=== PATIENT | male | born 1965 | race Caucasian/White ===

== ENCOUNTER 2017-08-25 17:58 | Inpatient (IN) | payer BC ==
[~2017-08-25] VITALS: Ht 177.8 cm; Wt 89.8 kg
[2017-08-25 19:30] LABS: BILIRUBIN,URINE NEGATIVE (NEGATIVE); CLARITY,URINE CLEAR (CLEAR); COLOR,URINE YELLOW (YELLOW); KETONES,URINE 1+ (NEGATIVE); LEUKOCYTE ESTERASE ,URINE NEGATIVE (NEGATIVE); NITRITE,URINE NEGATIVE (NEGATIVE); PROTEIN,URINE DIPSTICK NEGATIVE (NEGATIVE); URINE UROBILINOGEN 0.2 mg/dL (0.2 - 1)
[2017-08-25 19:33] LABS: WBC,URINE (MAN) 0-5 /HPF (0-5)
[2017-08-25 19:34] LABS: BACTERIA,URINE RARE /HPF; MUCUS,URINE MODERATE (RARE)
[2017-08-26] VITALS (8 sets, daily range): BP systolic 127–165; BP diastolic 73–89
[2017-08-26] MEDS ORDERED: KETOROLAC TROMETHAMINE 30 MG/ML VIAL IV STA (00:54)
[2017-08-26] MEDS ORDERED: ONDANSETRON HCL INJ 2 MG/ML VIAL IV STA (00:54)
[2017-08-26] MEDS ORDERED: KETOROLAC TROMETHAMINE 30 MG/ML VIAL ONE (01:02)
[2017-08-26] MEDS ORDERED: ONDANSETRON HCL INJ 2 MG/ML VIAL ONE (01:02)
[2017-08-26 01:35] LABS: BASOPHILS # (AUTO) 0.1 (0.0-0.1); BASOPHILS % 0.6 % (0.0-1.0); EOSINOPHILS % 0.1 % (0.0-6.0); HEMATOCRIT 44.4 % (38.2-49.6); HEMOGLOBIN 15.4 g/dL (14.0-18.0); LYMPHOCYTES # (AUTO) 0.8 (1.0-3.2); LYMPHOCYTES % 9.2 % (18.0-39.1); MEAN CORPUSCULAR HGB CONC 34.7 g/dL (31-35); MEAN CORPUSCULAR VOLUME 92.3 fL (81-99); MONOCYTES # (AUTO) 0.9 (0.2-0.8); MONOCYTES % 10.6 % (4.4-11.3); PLATELET COUNT 193 x10e3/uL (140-360); RED BLOOD COUNT 4.81 x10e6/uL (4.3-5.7); RED CELL DISTRIBUTION WIDTH 11.7 % (11.7-14.4)
[2017-08-26 01:37] LABS: ALBUMIN 4.3 g/dL (3.5-5.0); ALBUMIN/GLOBULIN RATIO 1.3 (0.8-2.0); ANION GAP 16.1 mmol/L (8-16); CALCIUM 9.5 mg/dL (8.4-10.2); CREATININE, SERUM 1.31 mg/dL (0.72-1.25); POTASSIUM 4.1 mmol/L (3.5-5.1)
--- NOTE | 2017-08-26 02:07 | Diagnostic Imaging Report ---
EXAM: CT Abdomen and Pelvis WITHOUT contrast INDICATION: Right flank pain COMPARISON: None. TECHNIQUE: Abdomen and pelvis were scanned utilizing a multidetector helical scanner from the lung base to the pubic symphysis without administration of IV contrast. Absence of intravenous contrast decreases sensitivity for detection of focal lesions and vascular pathology. Coronal and sagittal reformations were obtained. Stone protocol is performed. IV CONTRAST: None. ORAL CONTRAST: None RADIATION DOSE: Total DLP: 583.83 mGy*cm Estimated effective dose: (DLP x 0.015 x size factor) mSv COMPLICATIONS: None FINDINGS: LINES and TUBES: None. LOWER THORAX: Unremarkable HEPATOBILIARY: No focal hepatic lesions. No biliary ductal dilation. GALLBLADDER: There is layering sludge in the gallbladder No wall thickening. SPLEEN: No splenomegaly. PANCREAS: No focal masses or ductal dilatation. ADRENALS: No adrenal nodules KIDNEYS/URETERS: Right-sided mild hydroureteronephrosis secondary to a 6 mm stone in the distal right ureter. No cystic or solid mass lesions. GI TRACT: No abnormal distention, wall thickening, or evidence of bowel obstruction. There are diverticula within the colon without evidence of diverticulitis. Appendix is normal. PELVIC ORGANS/BLADDER: Unremarkable. LYMPH NODES: No lymphadenopathy. VESSELS: Unremarkable. PERITONEUM / RETROPERITONEUM: No free air or fluid. BONES: Unremarkable. SOFT TISSUES: Unremarkable. IMPRESSION: 1. Obstructive 6 mm stone in the distal right ureter resulting in mild hydroureteronephrosis. Signed by: Dr. Lex Hodges M.D. on 08/26/2017 2:03 AM
[2017-08-26] MEDS: SODIUM CHLORIDE 0.9% 1000ML 1,000 ML IV SCH ×3 (03:00→12:52)
[2017-08-26] MEDS ORDERED: CEFTRIAXONE SOD 1 GM VIAL IV SCH (04:15)
[2017-08-26] MEDS ORDERED: HYDROMORPHONE 1MG/1ML INJ IV PRN (04:15)
[2017-08-26] MEDS ORDERED: CEFTRIAXONE SOD 1 GM/NS 50 ML 50 ML IV SCH (04:30)
[2017-08-26] MEDS ORDERED: CEFTRIAXONE SOD 1 GM VIAL IV ONE (05:15)
[2017-08-26] MEDS ORDERED: TESSALON PERLE100 MG PO (05:32)
[2017-08-26] MEDS ORDERED: BENAZEPRIL HCL10 MG PO (05:32)
[2017-08-26] MEDS ORDERED: HYDROMORPHONE 2MG/ML INJ IV PRN ×2 (05:45)
[2017-08-26] MEDS: ONDANSETRON HCL INJ 2 MG/ML VIAL IV PRN ×4 (05:47→17:42)
[2017-08-26] MEDS ORDERED: WATER STERILE 10 ML VIAL INJ PRN (08:45)
[2017-08-26] MEDS: HYDROMORPHONE 2MG/ML INJ IV PRN ×4 (09:30→22:02)
[2017-08-26] MEDS: ACETAMINOPHEN 325 MG TAB PO PRN ×2 (12:36→17:42)
[2017-08-26] MEDS: METOPROLOL TARTRATE 25 MG TAB PO SCH ×2 (13:15→17:36)
[2017-08-26 13:50] LABS: CHOL/HDL RATIO 3.6 (3.9-4.7)
[2017-08-26] MEDS: FAMOTIDINE 20 MG TAB PO SCH (17:36)
[2017-08-26 19:18] LABS: BASOPHILS % 0.3 % (0.0-1.0); EOSINOPHILS % 0.6 % (0.0-6.0); HEMOGLOBIN 13.3 g/dL (14.0-18.0); LYMPHOCYTES # (AUTO) 0.4 (1.0-3.2); LYMPHOCYTES % 6.3 % (18.0-39.1); MEAN CORPUSCULAR HEMOGLOBIN 32.6 pg (28-32); MEAN CORPUSCULAR VOLUME 93.1 fL (81-99); MONOCYTES # (AUTO) 0.7 (0.2-0.8); MONOCYTES % 10.5 % (4.4-11.3); NEUTROPHILS # (AUTO) 5.6 (2.1-6.9); NEUTROPHILS % 81.9 % (38.7-80.0); PLATELET COUNT 143 x10e3/uL (140-360); RED BLOOD COUNT 4.08 x10e6/uL (4.3-5.7); RED CELL DISTRIBUTION WIDTH 11.9 % (11.7-14.4)
[2017-08-26 19:29] LABS: INR 0.99; PROTHROMBIN TIME 13.6 seconds (11.9-14.5)
[2017-08-26 19:30] LABS: PARTIAL THROMBOPLASTIN TIME 32.6 seconds (23.8-35.5)
[2017-08-26 19:35] LABS: ALBUMIN 3.4 g/dL (3.5-5.0); ALBUMIN/GLOBULIN RATIO 1.2 (0.8-2.0); CALCIUM 8.3 mg/dL (8.4-10.2); CREATININE, SERUM 1.41 mg/dL (0.72-1.25)
[2017-08-26] MEDS ORDERED: SODIUM CHLORIDE 0.9% 500ML 500 ML ONE (19:56)
[2017-08-26] MEDS ORDERED: LIDOCAINE HCL 2% LOCAL 20 ML VIAL ONE ×2 (19:56→20:00)
[2017-08-26] MEDS ORDERED: FENTANYL CITRATE/PF 100MCG/2 ML INJ ONE (19:56)
[2017-08-26] MEDS ORDERED: MIDAZOLAM HCL 2 MG/2 ML VIAL ONE (19:56)
[2017-08-26] MEDS ORDERED: IOPAMIDOL 300MG/ML 50ML INFUS..BTL IV ONE ×2 (19:57→20:00)
[2017-08-26] MEDS ORDERED: CIPROFLOXACIN 400 MG/D5W 200ML BAG IV ONE (20:00)
[2017-08-26] MEDS ORDERED: SODIUM CHLORIDE 0.9% 250ML 250 ML ONE (20:00)
[2017-08-26] MEDS ORDERED: SODIUM CHLORIDE 0.9% 1000ML 1,000 ML ONE (20:31)
[2017-08-27] MEDS ORDERED: HYDROMORPHONE 2MG/ML INJ IV ONE
[2017-08-27] MEDS: HYDROMORPHONE 2MG/ML INJ IV PRN ×6 (01:58→17:56)
[2017-08-27 04:00] VITALS: BP 140/78
[2017-08-27] MEDS: ACETAMINOPHEN 325 MG TAB PO PRN ×2 (04:32)
[2017-08-27] MEDS ORDERED: CEFTRIAXONE SOD 1 GM VIAL IV SCH (05:00)
[2017-08-27 08:00] VITALS: BP 136/65
[2017-08-27] MEDS: SODIUM CHLORIDE 0.9% 1000ML 1,000 ML IV SCH ×2 (08:30→16:52)
[2017-08-27] MEDS: METOPROLOL TARTRATE 25 MG TAB PO SCH ×2 (08:30→16:52)
[2017-08-27] MEDS: FAMOTIDINE 20 MG TAB PO SCH ×2 (08:30→15:35)
[2017-08-27 08:44] VITALS: BP 136/65
[2017-08-27 08:47] LABS: BASOPHILS % 0.4 % (0.0-1.0); EOSINOPHILS % 0.2 % (0.0-6.0); HEMATOCRIT 37.8 % (38.2-49.6); HEMOGLOBIN 12.8 g/dL (14.0-18.0); LYMPHOCYTES # (AUTO) 0.8 (1.0-3.2); LYMPHOCYTES % 14.6 % (18.0-39.1); MEAN CORPUSCULAR HEMOGLOBIN 32.3 pg (28-32); MEAN CORPUSCULAR HGB CONC 33.9 g/dL (31-35); MEAN CORPUSCULAR VOLUME 95.5 fL (81-99); MONOCYTES # (AUTO) 0.7 (0.2-0.8); MONOCYTES % 13.7 % (4.4-11.3); NEUTROPHILS # (AUTO) 3.8 (2.1-6.9); NEUTROPHILS % 70.7 % (38.7-80.0); PLATELET COUNT 133 x10e3/uL (140-360); RED BLOOD COUNT 3.96 x10e6/uL (4.3-5.7); RED CELL DISTRIBUTION WIDTH 11.9 % (11.7-14.4)
[2017-08-27 09:08] LABS: ALANINE AMINOTRANSFERASE 22 IU/L (0-55); ALBUMIN 3.2 g/dL (3.5-5.0); ALBUMIN/GLOBULIN RATIO 1.1 (0.8-2.0); ALKALINE PHOSPHATASE 58 IU/L (40-150); BLOOD UREA NITROGEN 18 mg/dL (7-26); BUN/CREATININE RATIO 19 (6-25); CALCIUM 8.2 mg/dL (8.4-10.2); CARBON DIOXIDE 23 mmol/L (22-29); CHLORIDE 112 mmol/L (98-107); CREATININE, SERUM 0.97 mg/dL (0.72-1.25); EST GLOMERULAR FILTRATION RATE > 60 ML/MIN (60-); GLUCOSE 92 mg/dL (74-118); SODIUM 142 mmol/L (136-145)
--- NOTE | 2017-08-27 09:24 | History and Physical ---
PRIMARY CARE PHYSICIAN: Dr. Escamilla. CHIEF COMPLAINT: Flank pain. HISTORY OF PRESENT ILLNESS: A 52-year-old man with a history of hypertension and significant family history of everyone having kidney stones including parents, siblings and children. Now, developing right flank pain. The patient notes that back in the summer of 2017 he did have some right flank discomfort but it spontaneously resolved. Now, he has severe right flank discomfort with radiation to his right groin, and, therefore, he came to the hospital today and he was found to have ureterolithiasis and he is admitted for further evaluation and management. Denies any fever, chills or sweats. PAST MEDICAL HISTORY: Hypertension. PAST SURGICAL HISTORY: Eye surgery. ALLERGIES: PER ELECTRONIC MEDICAL RECORDS. FAMILY HISTORY: Kidney stones in multiple family members including parents and siblings and children. SOCIAL HISTORY: The patient is . He has 2 children. Occasional alcohol. No cigarettes. He works for [employer]. MEDICATIONS: Per electronic medical records. REVIEW OF SYSTEMS: Denies any dizziness or chest pain. PHYSICAL EXAMINATION VITAL SIGNS: Reviewed. T max is 101.8. GENERAL APPEARANCE: A tired-appearing man resting in the bed. HEENT: Anicteric. Pupils responsive to light. No oral lesions. CARDIOVASCULAR: Normal S1 and S2. LUNGS: Moderate breath sounds, ABDOMEN: Soft and nontender. Nondistended. His right flank is tender. EXTREMITIES: There is no edema. SKIN: Dry. PSYCHIATRIC: Normal affect. LABS: Reviewed. MEDICATIONS: Reviewed. ASSESSMENT AND PLAN: This is a 52-year-old man. 1. Right ureterolithiasis. Continue IV fluids. Strain urine. Urology has been consulted. 2. Acute kidney injury. Rehydrate and then reassess. 3. Overweight state. BMI is 28.4. His blood glucose is 120. Will screen for diabetes and will obtain a lipid panel. 4. Fever. Could be related to urinary tract infection, although the urine shows 0-5 white blood cells, negative nitrites and negative leukocyte esterase, but will continue empirically on ceftriaxone and follow up cultures. 5. Hypertension. Will hold his NICHOLAS inhibitor and will utilize beta vega if needed. Will start him on metoprolol 25 q.12 h. 6. Prophylaxis. Use SCDs and Pepcid. DISPOSITION: IV fluids, strain urine, antibiotics. Job#: [id number]
[2017-08-27] MEDS: ONDANSETRON HCL INJ 2 MG/ML VIAL IV PRN (11:43)
[2017-08-27] MEDS: TRAMADOL/APAP 37.5MG-325MG TAB PO SCH ×2 (14:15→21:29)
[2017-08-27] MEDS ORDERED: PROMETHAZINE 12.5MG/ NACL 0.9% 12.5 MG/50 ML BAG IV ONE (15:00)
[2017-08-27] MEDS ORDERED: CYCLOBENZAPRINE HCL 10 MG TAB PO ONE (15:30)
[2017-08-27] MEDS: DOCUSATE SODIUM 100 MG CAP PO SCH (15:35)
[2017-08-27] MEDS: SIMETHICONE 80 MG CHEW PO PRN (15:35)
[2017-08-27 16:02] VITALS: BP 151/75
--- NOTE | 2017-08-27 17:55 | Diagnostic Imaging Report ---
EXAMINATION: CHEST 2 VIEWS INDICATION: Fever COMPARISON: None FINDINGS: PA and lateral views TUBES and LINES: None. LUNGS: Lungs are well inflated. Subtle airspace opacities in the left lung base. PLEURA: No pleural effusion or pneumothorax. HEART AND MEDIASTINUM: The cardiomediastinal silhouette is unremarkable. BONES AND SOFT TISSUES: No acute osseous lesion. Soft tissues are unremarkable. UPPER ABDOMEN: No free air under the diaphragm. IMPRESSION: Subtle airspace opacity in the left lung base, likely pneumonia. Signed by: Dr. Duran Martin M.D. on 08/27/2017 5:51 PM
[2017-08-27 20:00] VITALS: BP 126/69
[2017-08-27] MEDS: ACETAMINOPHEN/CODEINE 300MG - 30MG TAB PO PRN (21:28)
[2017-08-27] MEDS: PIPER-TAZ 3.375 GM 50 ML IV SCH (21:29)
[2017-08-28] VITALS (8 sets, daily range): BP systolic 126–135; BP diastolic 72–83
[2017-08-28] MEDS: SIMETHICONE 80 MG CHEW PO PRN ×3 (01:39→20:31)
[2017-08-28] MEDS: HYDROMORPHONE 2MG/ML INJ IV PRN ×2 (01:40→09:27)
--- NOTE | 2017-08-28 04:06 | Progress Note ---
DATE: August 27, 2017 TIME: 9:30 a.m. OVERNIGHT: Patient is status post right-sided nephrostomy tube placement. Pain is about 6/10. REVIEW OF SYSTEMS: No dizziness. PHYSICAL EXAMINATION VITAL SIGNS: Reviewed. GENERAL: A tired-appearing man resting in bed. HEENT: Anicteric. CARDIOVASCULAR: Normal S1 and S2. LUNGS: Moderate breath sounds. ABDOMEN: Soft and nontender. Right flank nephrostomy tube in place with serosanguineous material draining. EXTREMITIES: No edema. SKIN: Dry. PSYCHIATRIC: Normal affect. LABS: Reviewed. MEDICATIONS: Reviewed. ASSESSMENT: A 52-year-old man with: 1. Right ureterolithiasis. 2. Acute kidney injury. 3. Overweight state: Body mass index 28.4. 4. Fever. 5. Hypertension. 6. Hydroureteronephrosis on the right. PLAN 1. Status post nephrostomy tube placement. 2. Continue IV antibiotics. Follow up cultures. 3. Renal function improving. 4. Continue pain control. 5. Follow up cultures. 6. Continue SCDs and Pepcid for prophylaxis. Job#: [id number] NATALIE
[2017-08-28] MEDS: TRAMADOL/APAP 37.5MG-325MG TAB PO SCH ×3 (06:09→21:16)
[2017-08-28] MEDS: PIPER-TAZ 3.375 GM 50 ML IV SCH (06:09)
[2017-08-28 07:26] LABS: BASOPHILS % 0.4 % (0.0-1.0); EOSINOPHILS % 0.4 % (0.0-6.0); HEMATOCRIT 35.7 % (38.2-49.6); HEMOGLOBIN 12.2 g/dL (14.0-18.0); LYMPHOCYTES # (AUTO) 0.7 (1.0-3.2); MEAN CORPUSCULAR HEMOGLOBIN 32.1 pg (28-32); MEAN CORPUSCULAR HGB CONC 34.2 g/dL (31-35); MEAN CORPUSCULAR VOLUME 93.9 fL (81-99); MONOCYTES # (AUTO) 0.4 (0.2-0.8); MONOCYTES % 7.2 % (4.4-11.3); NEUTROPHILS # (AUTO) 4.4 (2.1-6.9); NEUTROPHILS % 79.5 % (38.7-80.0); PLATELET COUNT 137 x10e3/uL (140-360); RED CELL DISTRIBUTION WIDTH 11.9 % (11.7-14.4)
--- NOTE | 2017-08-28 07:57 | Progress Note ---
DATE: PASTRY ARTIST: Nik Stephens MD CHIEF COMPLAINT: Hydronephrosis and urolithiasis, right kidney. SUBJECTIVE: Patient continues with some pain, although reports he feels a little bit better, less pressure. OBJECTIVE VITALS: Temperature 99.6, pulse 83, blood pressure 136/65, respirations 21, satting 96% on room air. GENERAL: Patient is awake, alert and oriented times 3. Speech is clear. LUNGS: Clear to auscultation bilaterally. Normal respiratory effort. HEENT: The extraocular muscles are intact. Sclerae are anicteric. ABDOMEN: Soft. Bowel sounds present. Slightly tender to the right side. CARDIOVASCULAR: Regular rate and rhythm. No murmur appreciated. NECK: Supple. Trachea is midline. EXTREMITIES: No calf tenderness. NEUROLOGIC: Nonfocal. LABS: Sodium 142, potassium 4.0, chloride 112, CO2 23, BUN 18, creatinine 0.87, glucose 92. White count 5.40, hemoglobin 12.8, hematocrit 37.8, platelets 133. AST 16, ALT 22, alkaline phos 58, total bili 0.5. DIAGNOSES 1. Right ureterolithiasis. Continue to strain all urine. Patient had a right nephrostomy tube placed yesterday. Continue with IV antibiotics. Continue to follow urology's recommendations. 2. Acute kidney injury. Will continue to rehydrate. Creatinine today is 0.87, stable. 3. Overweight state. BMI 28.4. Will continue to monitor. 4. Fever. Patient is having a low-grade temperature today, 99.6 on record. Will continue with IV antibiotics. 5. Hypertension. Blood pressure is stable. Will continue to monitor blood pressure. 6. Patient is probably having some gas and constipation. Will start the patient on Colace 100 mg p.o. b.i.d. scheduled and simethicone 120 mg p.o. every 8 hours p.r.n. Dictated by: Tony Koenig NP Job#: [id number]
[2017-08-28] MEDS: METOPROLOL TARTRATE 25 MG TAB PO SCH ×2 (08:51→17:07)
[2017-08-28] MEDS: DOCUSATE SODIUM 100 MG CAP PO SCH ×2 (08:51→17:04)
[2017-08-28] MEDS: FAMOTIDINE 20 MG TAB PO SCH ×2 (08:51→17:04)
[2017-08-28] MEDS: SODIUM CHLORIDE 0.9% 1000ML 1,000 ML IV SCH ×2 (09:00→15:15)
[2017-08-28] MEDS ORDERED: BISACODYL 5 MG TAB EC PO ONE (12:00)
[2017-08-28] MEDS ORDERED: LEVOFLOXACIN 750MG/D5W 150ML 150 ML IV SCH (13:30)
[2017-08-28] MEDS ORDERED: DIPHENHYDRAMINE HCL INJ 50 MG/ML VIAL IV ONE ×2 (15:15→15:30)
[2017-08-28] MEDS: FERROUS SULFATE 325 MG TAB PO SCH (17:04)
[2017-08-28] MEDS: ASCORBIC ACID 500 MG TAB PO SCH (17:04)
[2017-08-28] MEDS: ACETAMINOPHEN/CODEINE 300MG - 30MG TAB PO PRN ×2 (17:09→23:21)
[2017-08-29] VITALS (7 sets, daily range): BP systolic 130–141; BP diastolic 65–84
[2017-08-29] MEDS: TRAMADOL/APAP 37.5MG-325MG TAB PO SCH ×3 (05:36→21:52)
[2017-08-29] MEDS: SODIUM CHLORIDE 0.9% 1000ML 1,000 ML IV SCH (05:45)
[2017-08-29 07:25] LABS: BASOPHILS % 0.6 % (0.0-1.0); EOSINOPHILS # (AUTO) 0.2 (0.0-0.4); EOSINOPHILS % 2.7 % (0.0-6.0); HEMATOCRIT 37.7 % (38.2-49.6); LYMPHOCYTES # (AUTO) 1.6 (1.0-3.2); LYMPHOCYTES % 25.9 % (18.0-39.1); MEAN CORPUSCULAR HEMOGLOBIN 32.1 pg (28-32); MEAN CORPUSCULAR HGB CONC 34.5 g/dL (31-35); MEAN CORPUSCULAR VOLUME 93.1 fL (81-99); MONOCYTES # (AUTO) 0.6 (0.2-0.8); MONOCYTES % 9.2 % (4.4-11.3); NEUTROPHILS # (AUTO) 3.8 (2.1-6.9); NEUTROPHILS % 60.3 % (38.7-80.0); PLATELET COUNT 160 x10e3/uL (140-360); RED BLOOD COUNT 4.05 x10e6/uL (4.3-5.7); RED CELL DISTRIBUTION WIDTH 11.6 % (11.7-14.4)
[2017-08-29 07:49] LABS: ANION GAP 11.5 mmol/L (8-16); BLOOD UREA NITROGEN 12 mg/dL (7-26); BUN/CREATININE RATIO 16 (6-25); CALCIUM 8.6 mg/dL (8.4-10.2); CARBON DIOXIDE 26 mmol/L (22-29); CHLORIDE 107 mmol/L (98-107); CREATININE, SERUM 0.75 mg/dL (0.72-1.25); EST GLOMERULAR FILTRATION RATE > 60 ML/MIN (60-); GLUCOSE 94 mg/dL (74-118); POTASSIUM 3.5 mmol/L (3.5-5.1); SODIUM 141 mmol/L (136-145)
--- NOTE | 2017-08-29 08:29 | Diagnostic Imaging Report ---
Date and Time: 08/26/2017 Procedure: Right percutaneous nephrostomy placement cutting and creasing press operator: Dr. Quinonez Pre-operative diagnosis: Right ureteral calculus, mild hydroureteronephrosis Post-operative diagnosis: Right ureteral calculus, mild hydroureteronephrosis Conscious Sedation: Versed 2 mg and Fentanyl 100 mcg. The patient's heart rate and pulse oximetry were continuously monitored by the interventional radiology nurse. Blood pressure was monitored at 5 minute intervals. Additional Medications: Ciprofloxacin 400 mg intravenous prior to skin prep Fluoroscopy time: 3.2 minutes Dose-area Product: 296.5 cGycm2. Contrast used: 30 cc Isovue-300 Estimated blood loss: Less than 15 cc Specimens: None Implants: 10 Portuguese locking loop nephrostomy catheter Blood products administered: None Condition at completion of procedure: Stable Disposition: Returned to floor unit DISCUSSION: Informed consent for the procedure was obtained from the patient and documented in the medical record after discussion of risks and benefits. The patient was placed in the prone position on the fluoroscopic table. The right flank was prepped and draped in the standard sterile fashion. 1% lidocaine was infiltrated into the skin and subcutaneous tissues along the lower pole of the right kidney for local anesthesia. Then under sonographic guidance, a 21-gauge needle was used to access the mildly dilated lower pole collecting system. Injection of dilute contrast material confirmed appropriate positioning. A 0.0 1 8-in. wire was then advanced through the needle and coiled within the upper collecting system. The needle was exchanged for a 6 Portuguese coaxial sheath, which was advanced into the renal pelvis. The wire and cannula of the sheath were removed and a 0.0 3 5-in. Amplatz Super Stiff wire was advanced through the sheath and coiled within the upper collecting system. The sheath was then removed over the wire, the tract was dilated, and a 10 Portuguese locking loop percutaneous nephrostomy catheter was then advanced over the wire under fluoroscopic guidance. The wire was removed and the locking loop was formed within the renal pelvis, with appropriate positioning confirmed by injection of dilute contrast material. The catheter was flushed copiously with sterile saline and connected to gravity drainage. The catheter was secured to the skin with monofilament nylon suture and a sterile dressing was applied. The patient tolerated the procedure well without immediate complication. FINDINGS: Mild right hydronephrosis. IMPRESSION: Successful placement of a 10 Portuguese locking loop right percutaneous nephrostomy catheter under sonographic and fluoroscopic guidance. Recommend catheter flushing with 10 cc sterile saline every 8 hours. Definitive management of ureteral calculus per urology service. Signed by: Dr. Scar Quinonez M.D. on 08/29/2017 8:25 AM
[2017-08-29] MEDS: FERROUS SULFATE 325 MG TAB PO SCH ×2 (08:45→17:47)
[2017-08-29] MEDS: DOCUSATE SODIUM 100 MG CAP PO SCH ×2 (08:45→17:47)
[2017-08-29] MEDS: FAMOTIDINE 20 MG TAB PO SCH ×2 (08:45→17:47)
[2017-08-29] MEDS: ASCORBIC ACID 500 MG TAB PO SCH ×2 (08:46→17:47)
[2017-08-29] MEDS: METOPROLOL TARTRATE 25 MG TAB PO SCH ×2 (08:46→17:51)
[2017-08-29] MEDS: MULTIVITAMINS/MINERALS TAB PO SCH (08:46)
[2017-08-29] MEDS ORDERED: BISACODYL 5 MG TAB EC PO ONE (09:00)
[2017-08-29] MEDS ORDERED: LEVOFLOXACIN 750MG/D5W 150ML 150 ML IV SCH (09:00)
[2017-08-29] MEDS ORDERED: AZITHROMYCIN 500MG/NS 250 ML 250 ML IV SCH (09:00)
--- NOTE | 2017-08-29 13:30 | Consultation ---
DATE OF CONSULTATION: August 26, 2017 UROLOGY CONSULTATION REASON FOR CONSULTATION: Renal colic. HISTORY OF PRESENT ILLNESS: Tushar Eaton is a 52-year-old man with no previous urological history. Denies any previous hematuria, dysuria, urinary tract infections or ureterolithiasis. Denies ever seeing a urologist. The patient has severe right-sided flank pain with nausea and vomiting. He reported to the emergency room and was admitted with obstructive uropathy. Consultation was called in early this morning. The patient has been kept n.p.o. just in case. Apparently, the patient spiked temperatures earlier today. He was given Tylenol and continues to spike temperatures. I did not know about these temperature spikes until I came to perform the consultation. The patient denies any current dysuria. His nausea and vomiting are improved. PAST MEDICAL AND SURGICAL HISTORY: 1. Status post LASIK surgery. 2. Hypertension. FAMILY HISTORY: Noncontributory to the active urological problem. SOCIAL HISTORY: The patient denies smoking, alcohol or drug use. He has a supportive at the bedside. 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 CURRENT MEDICATIONS: Please refer to the MAR. ALLERGIES: NONE KNOWN. REVIEW OF SYSTEMS: As discussed above in history of present illness and past medical history, is otherwise negative for all other systems. PHYSICAL EXAMINATION GENERAL: A healthy-appearing 52-year-old man lying in bed in no apparent distress. VITAL SIGNS: His temperature maximum is 101. His vital signs are stable. The patient feels warm. ABDOMEN: Soft, nondistended, nontender except for the right flank with mild right-sided costovertebral angle tenderness. Kidneys are not palpable. No hepatosplenomegaly. No obvious evidence of hernia. GENITOURINARY: Testes descending bilaterally. 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 The patient reports it has been atrophic since he has been a teenager. He is unsure of the etiology. The patient has a normal circumcised male phallus with normal meatus without any lesions. RECTAL EXAM: Digital rectal exam is deferred at the present time. For the remaining physical examination systems, please refer to the admission history and physical on the chart and the ERT sheet. LABORATORY DATA: White blood cell count 8880, hemoglobin 15.4, platelets normal at 193,000. The patient's creatinine is elevated at 1.31, presumably this is acute. Urinalysis significant for 6-10 RBCs, nitrite negative urine with only 0-5 WBCs and rare bacteria noted. IMAGING: CT scan of the abdomen and pelvis was done as a stone protocol study. It revealed a 6 mm distal right ureteral stone with right hydroureteronephrosis and no other abnormalities noted except for some layering sludge within the gallbladder. ASSESSMENT 1. Right ureterolithiasis. 2. Right hydronephrosis. 3. Nausea and vomiting that has improved. 4. Right renal colic. 5. Microscopic hematuria. 6. Presumably acute renal insufficiency. 7. Atrophic right testis. 8. Impending sepsis. PLAN: 1. Due to the fact that the patient is spiking high fevers with an obstructed system, the safest and most appropriate next step is a stat percutaneous nephrostomy. I ordered that and called the radiology department to ensure they had received this order and that they make the appropriate arrangements for a stat right percutaneous nephrostomy. 2. I ordered blood cultures. 3. Once the patient is fully cooled off from this active infection, we will take the patient to the operating room to manage his stone should he fail to pass it by then. 4. Ongoing urological followup is a must. Thank you very much for involving us in the care of your patient. Will be happy to follow him along with you as well as an outpatient. Job#: [id number] GH cc:SHANNAN MCKEON MD
[2017-08-29] MEDS ORDERED: PIPER-TAZ 3.375 GM 50 ML IV SCH (14:00)
[2017-08-29] MEDS ORDERED: CEFTRIAXONE SOD 1 GM VIAL IV SCH (15:00)
--- NOTE | 2017-08-29 15:27 | Consultation ---
DATE OF CONSULTATION: REASON FOR CONSULTATION: UTI. Thank you so much for involving us in the care of this patient. HISTORY OF PRESENT ILLNESS: This patient, who is a very pleasant, 52-year-old gentleman, was admitted on August 26, 2017, to [facility] with flank pain. The patient who is a 52-year-old and has a strong family history of renal stones comes in with flank pain on the right side and not feeling well. PAST MEDICAL HISTORY: Hypertension. PAST SURGICAL HISTORY: Eye surgery. ALLERGIES: NKA. SOCIAL HISTORY: He does not smoke, no drug abuse, no alcohol abuse. FAMILY HISTORY: Renal stone. REVIEW OF SYSTEMS GENERAL: At the present time, he is doing well. HEENT: Anicteric. PULMONARY: Negative CARDIAC: Negative. GI: Negative. : Negative. SKIN: There is no rash at the present time. LABORATORY DATA: Blood cultures have been negative. Urine cultures have been negative. White count 6.2, hemoglobin 13. Sodium 141, potassium 3.5, creatinine 0.75. MEDICATIONS: He is on Zosyn, Ultracet, vitamin C, Lopressor. IMPRESSION: Renal stone. Perhaps urinary tract infection. Cultures are negative. The plan for him is to remove the nephrostomy tube tomorrow. Can discharge home with oral Keflex 500 mg p.o. t.i.d. for 10 more days. Can change him to Rocephin 1 g daily. Change to oral Keflex once the nephrostomy tube is removed. Job#: [id number]
[2017-08-29] MEDS: ACETAMINOPHEN/CODEINE 300MG - 30MG TAB PO PRN (20:42)
[2017-08-30] VITALS: BP 120/78
[2017-08-30] MEDS: ACETAMINOPHEN/CODEINE 300MG - 30MG TAB PO PRN (03:15)
[2017-08-30 04:00] VITALS: BP 122/69
[2017-08-30] MEDS: TRAMADOL/APAP 37.5MG-325MG TAB PO SCH ×2 (05:44→14:00)
[2017-08-30] MEDS: SODIUM CHLORIDE 0.9% 1000ML 1,000 ML IV SCH (07:15)
[2017-08-30 07:21] LABS: BASOPHILS % 0.4 % (0.0-1.0); EOSINOPHILS # (AUTO) 0.3 (0.0-0.4); EOSINOPHILS % 4.5 % (0.0-6.0); HEMATOCRIT 35.6 % (38.2-49.6); HEMOGLOBIN 12.7 g/dL (14.0-18.0); LYMPHOCYTES # (AUTO) 1.8 (1.0-3.2); LYMPHOCYTES % 32.2 % (18.0-39.1); MEAN CORPUSCULAR HEMOGLOBIN 32.6 pg (28-32); MEAN CORPUSCULAR HGB CONC 35.7 g/dL (31-35); MEAN CORPUSCULAR VOLUME 91.3 fL (81-99); MONOCYTES # (AUTO) 0.4 (0.2-0.8); MONOCYTES % 7.5 % (4.4-11.3); PLATELET COUNT 142 x10e3/uL (140-360); RED CELL DISTRIBUTION WIDTH 11.6 % (11.7-14.4)
[2017-08-30] MEDS: FAMOTIDINE 20 MG TAB PO SCH (07:30)
[2017-08-30 07:42] LABS: ANION GAP 11.5 mmol/L (8-16); BLOOD UREA NITROGEN 12 mg/dL (7-26); BUN/CREATININE RATIO 16 (6-25); CALCIUM 8.4 mg/dL (8.4-10.2); CARBON DIOXIDE 28 mmol/L (22-29); CHLORIDE 107 mmol/L (98-107); CREATININE, SERUM 0.75 mg/dL (0.72-1.25); EST GLOMERULAR FILTRATION RATE > 60 ML/MIN (60-); GLUCOSE 91 mg/dL (74-118); POTASSIUM 3.5 mmol/L (3.5-5.1); SODIUM 143 mmol/L (136-145)
[2017-08-30 08:00] VITALS: BP 127/76
[2017-08-30] MEDS: FERROUS SULFATE 325 MG TAB PO SCH (08:00)
[2017-08-30] MEDS: MULTIVITAMINS/MINERALS TAB PO SCH (09:00)
[2017-08-30] MEDS: DOCUSATE SODIUM 100 MG CAP PO SCH (09:00)
[2017-08-30] MEDS: ASCORBIC ACID 500 MG TAB PO SCH (09:00)
[2017-08-30] MEDS: METOPROLOL TARTRATE 25 MG TAB PO SCH (09:19)
[2017-08-30 09:27] VITALS: BP 127/76
[2017-08-30] MEDS ORDERED: CEFTRIAXONE SOD 1 GM VIAL IV SCH ×2 (10:00→12:00)
[2017-08-30] MEDS ORDERED: BELLADONNA/OPIUM 60 MG SUPP PR ONE (11:34)
[2017-08-30] MEDS ORDERED: IOPAMIDOL 610MG/1ML 300 MG/ML VIAL IV ONE (11:34)
[2017-08-30 12:42] VITALS: BP 131/71
[2017-08-30] MEDS ORDERED: MIDAZOLAM HCL 2 MG/2 ML VIAL ONE (14:07)
[2017-08-30] MEDS ORDERED: FENTANYL CITRATE/PF 100MCG/2 ML INJ ONE (14:07)
[2017-08-30 16:06] VITALS: BP 131/75
[2017-08-30] MEDS ORDERED: TYLENOL WITH C1 EACH PO (16:37)
[2017-08-30] MEDS ORDERED: DITROPAN XL5 MG PO (16:38)
[2017-08-30] MEDS ORDERED: CEFUROXIME500 MG PO (16:39)
[2017-08-30] MEDS ORDERED: LIDOCAINE HCL 2% LOCAL INJ 5 ML SDV VIAL INJ ONE (17:59)
[2017-08-30] MEDS ORDERED: DEXAMETHASONE SOD PHOS INJ 4 MG/ML VIAL ONE (17:59)
[2017-08-30] MEDS ORDERED: SEVOFLURANE INHAL SOLN 250 ML PEN BTL ONE (17:59)
[2017-08-30] MEDS ORDERED: PROPOFOL IV EMULSION 10 MG/ML 20 ML VIAL ONE (17:59)
[2017-08-30] MEDS ORDERED: ONDANSETRON HCL INJ 2 MG/ML VIAL ONE (17:59)
--- NOTE | 2017-08-31 00:16 | Progress Note ---
DATE: RIVETING MACHINE OPERATOR: Dr. Aliya Vergara and Dr. Nik Stephens. CHIEF COMPLAINT: Hydronephrosis, ureterolithiasis. DIET: N.p.o. SUBJECTIVE: Patient reports less pain than before. OBJECTIVE VITALS: Temperature 96.9, pulse 60, blood pressure 122/69, respirations 18, and satting 99%. REPORT NOT COMPLETED, LENGTH 1:8 Job#: [id number] RI
--- NOTE | 2017-08-31 00:23 | Discharge Summary ---
CONSULTANTS: Dr. Nik Stephens and Dr. Aliya Vergara. This gentleman came in through the emergency room complaining of right back pain. Patient was diagnosed with hydronephrosis and ureterolithiasis. Patient underwent a nephrostomy placement tube by Dr. Stephens. Today, the patient is to have a stent placement and remove the nephrostomy tube today, and likely will be discharged if cleared by Dr. Stephens. PHYSICAL EXAMINATION VITALS: Temperature 96.9, pulse 60, blood pressure 122/69, respirations 18, satting 99% on room air. GENERAL: Patient is awake, alert and oriented times 3. Speech is clear. LUNGS: Clear to auscultation bilaterally. HEENT: Extraocular muscles are intact. ABDOMEN: Soft. Bowel sounds present. It is nontender and nondistended. CARDIOVASCULAR: Regular rate and rhythm. NECK: Supple. Trachea midline. EXTREMITIES: No calf tenderness. NEUROLOGICAL: Nonfocal. MEDICATIONS: Please see MAR. LABS: For today, sodium 143, potassium 3.5, chloride 107, CO2 28, BUN 12, creatinine 0.75, glucose 91. White count 5.5, hemoglobin 12.7, hematocrit 35.6, and platelets 142,000. DISCHARGE DIAGNOSES 1. Right ureterolithiasis, status post nephrostomy tube placement that was removed today, and had a stent placed. 2. Acute kidney injury that has resolved. Most recent creatinine 0.75. 3. Overweight state. Body mass index 28. 4. Fever that has resolved. 5. Hypertension. Patient is to continue on his blood pressure medication. Follow up with PCP to continue the enalapril or change medication due to his previous kidney problem. DICTATED BY GEO OWEN NP МАРИНА PURCELL MD Job#: [id number] NATALIE
== END 2017-08-30 17:02 | disposition home or self-care (01) | DRG 660 ==
LOC: ER 17:58 → MED/SURG 08-26 04:07 → OBSVTOIN 08-26 04:07
PROVIDERS: ADMIT Internal Medicine; ATTEND Internal Medicine
PROC: 0T933ZZ Drainage of Right Kidney Pelvis, Percutaneous Approach (ICD-10-PCS; 2017-08-26)
PROC: 0TP5X0Z Removal of Drainage Device from Kidney, External Approach (ICD-10-PCS; 2017-08-30)
PROC: BT141ZZ Fluoroscopy of Kidneys, Ureters and Bladder using Low Osmolar Contrast (ICD-10-PCS; 2017-08-30)
PROC: 0T768ZZ Dilation of Right Ureter, Via Natural or Artificial Opening Endoscopic (ICD-10-PCS; principal; 2017-08-30 12:00)
DX: N13.2 Hydronephrosis with renal and ureteral calculous obstruction (principal); N20.2 Calculus of kidney with calculus of ureter; N17.9 Acute kidney failure, unspecified; N13.1 Hydronephrosis with ureteral stricture, not elsewhere classified; N23 Unspecified renal colic; E66.3 Overweight; Z68.28 Body mass index [BMI] 28.0-28.9, adult; K59.00 Constipation, unspecified; I10 Essential (primary) hypertension; N50.0 Atrophy of testis
CPT/HCPCS: 36415; 50432; 71020; 74176; 74420; 74470; 76942; 77001; 80048; 80053; 80061; 81001; 82948; 83036; 83605; 83970; 84550; 85025; 85610; 85730; 87040; 87086; 96374; 96376; 99284; C2617; J0456; J0696; J1100; J1200; J1885; J2001; J2250; J2405; J2543; J2550; J7030; J7040; J7050

== ENCOUNTER 2025-06-12 15:50 | Observation (INO) | payer BC, OTHER ==
[~2025-06-12] VITALS: Ht 177.8 cm; Wt 86.2 kg
[~2025-06-12 15:50] MED LIST: BENAZEPRIL HCL10 MG PO; CEFUROXIME500 MG PO; DITROPAN XL5 MG PO; TESSALON PERLE100 MG PO; TYLENOL WITH C1 EACH PO
[2025-06-12 17:05] VITALS: TEMP 98
[2025-06-12 17:30] LABS: BASOPHILS % 0.8 % (0.0-1.0); EOSINOPHILS % 1.0 % (0.0-6.0); LYMPHOCYTES % 23.3 % (18.0-39.1); MONOCYTES % 6.7 % (4.4-11.3); NEUTROPHILS % 67.9 % (38.7-80.0); RED CELL DISTRIBUTION WIDTH 12.8 % (11.7-14.4)
[2025-06-12 17:44] LABS: INR 1.01
[2025-06-12 17:50] LABS: EST GLOMERULAR FILTRATION RATE 93.0 ML/MIN (>=60)
[2025-06-12] MEDS: SODIUM CHLORIDE 0.9% 1000ML 1,000 ML IV STA (18:02)
[2025-06-12 20:10] VITALS: PULSE 67; RESP 18; O2SAT 99
[2025-06-12] MEDS ORDERED: SODIUM CHLORIDE FLUSH 10 ML SYR INJ PRN (20:30)
[2025-06-12] MEDS ORDERED: ONDANSETRON HCL INJ 2MG/ML 2ML 2 MG/ML VIAL IV PRN (20:30)
[2025-06-12 20:45] VITALS: PULSE 67; RESP 15
[2025-06-13 01:30] VITALS: BP 118/73; PULSE 60; RESP 18; TEMP 98.1
[2025-06-13 02:02] VITALS: BP 136/81; PULSE 67; RESP 18; TEMP 98.2; O2SAT 99
[2025-06-13 06:21] LABS: CHOL/HDL RATIO 4.0 (3.9-4.7); LDL CHOLESTEROL 78.0 MG/DL (60-130)
[2025-06-13 08:00] VITALS: BP 148/91; PULSE 65; RESP 17; TEMP 97.9
[2025-06-13] MEDS: ASPIRIN 81 MG ENTERIC COATED PO SCH (08:56)
[2025-06-13] MEDS ORDERED: OXYBUTYNIN CHLORIDE XL 5 MG TAB PO PRN (11:30)
[2025-06-13] MEDS ORDERED: BENZONATATE 100 MG CAP PO PRN (11:30)
[2025-06-13] MEDS: BENAZEPRIL HCL 10 MG TAB PO SCH (11:48)
[2025-06-13 12:00] VITALS: BP 140/76; PULSE 63; RESP 19; TEMP 98.2
[2025-06-13 16:00] VITALS: BP 136/81; PULSE 61; RESP 19; TEMP 97.5
== END 2025-06-13 17:55 | disposition home or self-care (01) ==
LOC: ER 18:46 → ERHOLD 20:18 → MED/SURG 20:58
PROVIDERS: ADMIT Internal Medicine; ATTEND Internal Medicine
DX: R07.89 Other chest pain (principal); R42 Dizziness and giddiness; R00.2 Palpitations; I10 Essential (primary) hypertension
CPT/HCPCS: 36415 ×2; 70450; 71045; 80053; 80061; 82550; 83735; 83880; 84443; 84484 ×2; 85025; 85610; 85730; 93005; 93017; 93306; 94799; 99284; G0378 ×2; J7030